=== PATIENT | female | born 1965 | race Caucasian/White ===

== ENCOUNTER 2018-05-06 08:44 | Emergency (ER) | payer OTHER ==
[~2018-05-06] VITALS: Ht 160 cm; Wt 72.1 kg
[2018-05-06 08:44] VITALS: Ht 160 cm; Wt 72.1 kg
[2018-05-06 09:03] VITALS: BP 116/65
== END 2018-05-06 11:58 | disposition home or self-care (01) ==
LOC: ED 08:44
DX: S13.9XXA Sprain of joints and ligaments of unspecified parts of neck, initial encounter (principal); F41.9 Anxiety disorder, unspecified; M54.9 Dorsalgia, unspecified; V49.9XXA Car occupant (driver) (passenger) injured in unspecified traffic accident, initial encounter; Y93.I9 Activity, other involving external motion; Y92.413 State road as the place of occurrence of the external cause; Y99.8 Other external cause status
CPT/HCPCS: J1885